=== PATIENT | female | born 1995 | race Caucasian/White ===

== ENCOUNTER 2018-05-21 13:44 | Observation (INO) | payer SELFPAY ==
--- NOTE | 2018-05-21 13:51 | ER Report ---
History and Physical Time Seen By MD: 13:51 HPI/ROS CHIEF COMPLAINT: Abdominal pain, nausea HISTORY OF PRESENT ILLNESS: Patient is a 22-year-old female who is visiting from [place]. She states that around 5 AM she woke with epigastric abdominal pain along with some bilateral flank pain one episode of vomiting last evening but currently just nauseous. She denies any diarrhea. The pain at times gets quite intense. She denies any prior history of any abdominal surgery. She has no known ill contacts. She denies fevers or chills. Patient denies any travel out of the country no recent antibiotic use. REVIEW OF SYSTEMS: Constitutional: No fever, no chills. Eyes: No discharge. ENT: No sore throat. Cardiovascular: No chest pain, no palpitations. Respiratory: No cough, no shortness of breath. Gastrointestinal: Epigastric abdominal pain with nausea. Genitourinary: No hematuria. Musculoskeletal: No back pain. Skin: No rashes. Neurological: No headache. Allergies: Coded Allergies: No Known Drug Allergies (Unverified , 05/21/18) Home Meds Active Scripts Ondansetron Hcl (ZOFRAN) 4 Mg Tablet, 4 MG PO Q8H for Nausea, #15 TAB 0 Refills Prov:MAGUE ISIDRO MD 05/21/18 Clarithromycin (CLARITHROMYCIN) 500 Mg Tablet, 500 MG PO BID for 14 Days, #28 TAB 0 Refills Prov:MAGUE ISIDRO MD 05/21/18 Amoxicillin 500 Mg Tab (AMOXICILLIN 500 MG TAB) 500 Mg Tablet, 2 TAB PO Q12H for 14 Days, #56 TAB 0 Refills Prov:MAGUE ISIDRO MD 05/21/18 Pantoprazole Sodium (PANTOPRAZOLE SODIUM) 40 Mg Tablet.dr, 40 MG PO BID for 14 Days, #28 TAB.SR 0 Refills Prov:MAGUE ISIDRO MD 05/21/18 Past Medical/Surgical History Noncontributory Constitutional Vital Sign - Last 24 Hours 05/21/18 13:49 Temp 98.0 Pulse 76 Resp 20 B/P (MAP) 112/69 Pulse Ox 96 Physical Exam General/Constitutional: Patient is awake, alert, nontoxic and in no acute r espiratory distress. Head: Normocephalic and atraumatic. Eyes: Conjunctival clear, Pupils are equal and reactive to light. Extraocular muscles are intact and symmetrical. Sclera are clear and anicteric. Ears:External canals are clear. Tympanic membranes are clear with normal landmarks and light reflex. Nares: No rhinorrhea or bleeding. Turbinates are pink and moist. Oropharyngeal: Mucous membranes are moist. There is no pharyngeal erythema or exudate. There are no palatal petechiae. Uvula is midline and symmetrical. Neck: Supple, no adenopathy. Cardiovascular: Heart is regular rate and rhythm without audible murmurs, rubs or gallops. Pulmonary: Lungs are clear to auscultation bilaterally. There are no wheezes, rales, or rhonchi. Chest rise is symmetrical Abdomen: Soft, periumbilical and epigastric abdominal pain to palpation no guarding or rebound tenderness noted. Extremities: No gross deformities, No peripheral cyanosis. Able to move all 4 extremities. Neuro: Alert and oriented X3, Skin: No rashes, skin is warm dry and well perfused. Medical Decision Making Data Points Result Diagram: 05/21/18 1407 05/21/18 1407 Laboratory Hematology Test 05/21/18 13:48 05/21/18 14:07 Urine Color Yellow Urine Clarity Clear Urine pH 5.0 pH (4.8-9.5) Urine Specific [place] 1.024 Urine Protein Negative mg/dL (NEGATIVE) Urine Glucose (UA) Negative mg/dL (NEGATIVE) Urine Ketones Negative mg/dL (NEGATIVE) Urine Blood Negative (NEGATIVE) Urine Nitrite Negative (NEGATIVE) Urine Bilirubin Negative (NEGATIVE) Urine Urobilinogen Negative mg/dL (0.2-1.9) Urine Leukocyte Esterase Trace (NEGATIVE) Urine RBC <1 /HPF (0-2/HPF) Urine WBC 1 /HPF (0-5/HPF) Urine Squamous Epithelial Cells Many /LPF (</=FEW) Urine Bacteria Negative /HPF (NONE-FEW) Urine Mucus Few /HPF (NONE-FEW) Red Blood Count 5.28 M/uL (4.17-5.56) Mean Corpuscular Volume 83.1 fL (80.0-96.0) Mean Corpuscular Hemoglobin 28.4 pg (26.0-33.0) Mean Corpuscular Hemoglobin Concent 34.1 g/dL (32.0-36.0) Red Cell Distribution Width 13.1 % (11.5-14.5) Mean Platelet Volume 10.0 fL (7.2-11.1) Neutrophils (%) (Auto) 78.7 % (39.4-72.5) Lymphocytes (%) (Auto) 13.8 % (17.6-49.6) Monocytes (%) (Auto) 5.4 % (4.1-12.4) Eosinophils (%) (Auto) 1.2 % (0.4-6.7) Basophils (%) (Auto) 0.9 % (0.3-1.4) Nucleated RBC Relative Count (auto) 0.1 /100WBC Neutrophils # (Auto) 9.4 K/uL (2.0-7.4) Lymphocytes # (Auto) 1.7 K/uL (1.3-3.6) Monocytes # (Auto) 0.6 K/uL (0.3-1.0) Eosinophils # (Auto) 0.1 K/uL (0.0-0.5) Basophils # (Auto) 0.1 K/uL (0.0-0.1) Nucleated RBC Absolute Count (auto) 0.01 K/uL Urine HCG, Qualitative Negative (NEGATIVE) Sodium Level 137 mmol/L (137-145) Potassium Level 3.8 mmol/L (3.5-5.0) Chloride Level 106 mmol/L (98-107) Carbon Dioxide Level 26 mmol/L (22-31) Blood Urea Nitrogen 16 mg/dl (7-18) Creatinine 0.70 mg/dl (0.52-1.04) Glomerular Filtration Rate Calc > 60.0 Random Glucose 93 mg/dl (75-110) Calcium Level 9.2 mg/dl (8.4-10.2) Total Bilirubin 0.4 mg/dl (0.2-1.3) Aspartate Amino Transf (AST/SGOT) 25 U/L (0-35) Alanine Aminotransferase (ALT/SGPT) 30 U/L (0-56) Alkaline Phosphatase 75 U/L (0-126) Total Protein 7.7 g/dl (6.3-8.2) Albumin 4.3 g/dl (3.5-5.0) Lipase 133 U/L (23-300) Helicobacter pylori IgG Antibody Positive (NEGATIVE) Chemistry Test 05/21/18 13:48 05/21/18 14:07 Urine Color Yellow Urine Clarity Clear Urine pH 5.0 pH (4.8-9.5) Urine Specific [place] 1.024 Urine Protein Negative mg/dL (NEGATIVE) Urine Glucose (UA) Negative mg/dL (NEGATIVE) Urine Ketones Negative mg/dL (NEGATIVE) Urine Blood Negative (NEGATIVE) Urine Nitrite Negative (NEGATIVE) Urine Bilirubin Negative (NEGATIVE) Urine Urobilinogen Negative mg/dL (0.2-1.9) Urine Leukocyte Esterase Trace (NEGATIVE) Urine RBC <1 /HPF (0-2/HPF) Urine WBC 1 /HPF (0-5/HPF) Urine Squamous Epithelial Cells Many /LPF (</=FEW) Urine Bacteria Negative /HPF (NONE-FEW) Urine Mucus Few /HPF (NONE-FEW) White Blood Count 12.0 k/uL (4.5-11.0) Red Blood Count 5.28 M/uL (4.17-5.56) Hemoglobin 15.0 g/dL (12.0-16.0) Hematocrit 43.9 % (34.0-47.0) Mean Corpuscular Volume 83.1 fL (80.0-96.0) Mean Corpuscular Hemoglobin 28.4 pg (26.0-33.0) Mean Corpuscular Hemoglobin Concent 34.1 g/dL (32.0-36.0) Red Cell Distribution Width 13.1 % (11.5-14.5) Platelet Count 220 K/uL (150-450) Mean Platelet Volume 10.0 fL (7.2-11.1) Neutrophils (%) (Auto) 78.7 % (39.4-72.5) Lymphocytes (%) (Auto) 13.8 % (17.6-49.6) Monocytes (%) (Auto) 5.4 % (4.1-12.4) Eosinophils (%) (Auto) 1.2 % (0.4-6.7) Basophils (%) (Auto) 0.9 % (0.3-1.4) Nucleated RBC Relative Count (auto) 0.1 /100WBC Neutrophils # (Auto) 9.4 K/uL (2.0-7.4) Lymphocytes # (Auto) 1.7 K/uL (1.3-3.6) Monocytes # (Auto) 0.6 K/uL (0.3-1.0) Eosinophils # (Auto) 0.1 K/uL (0.0-0.5) Basophils # (Auto) 0.1 K/uL (0.0-0.1) Nucleated RBC Absolute Count (auto) 0.01 K/uL Urine HCG, Qualitative Negative (NEGATIVE) Glomerular Filtration Rate Calc > 60.0 Calcium Level 9.2 mg/dl (8.4-10.2) Total Bilirubin 0.4 mg/dl (0.2-1.3) Aspartate Amino Transf (AST/SGOT) 25 U/L (0-35) Alanine Aminotransferase (ALT/SGPT) 30 U/L (0-56) Alkaline Phosphatase 75 U/L (0-126) Total Protein 7.7 g/dl (6.3-8.2) Albumin 4.3 g/dl (3.5-5.0) Lipase 133 U/L (23-300) Helicobacter pylori IgG Antibody Positive (NEGATIVE) Urinalysis Test 05/21/18 13:48 05/21/18 14:07 Urine Color Yellow Urine Clarity Clear Urine pH 5.0 pH (4.8-9.5) Urine Specific [place] 1.024 Urine Protein Negative mg/dL (NEGATIVE) Urine Glucose (UA) Negative mg/dL (NEGATIVE) Urine Ketones Negative mg/dL (NEGATIVE) Urine Blood Negative (NEGATIVE) Urine Nitrite Negative (NEGATIVE) Urine Bilirubin Negative (NEGATIVE) Urine Urobilinogen Negative mg/dL (0.2-1.9) Urine Leukocyte Esterase Trace (NEGATIVE) Urine RBC <1 /HPF (0-2/HPF) Urine WBC 1 /HPF (0-5/HPF) Urine Squamous Epithelial Cells Many /LPF (</=FEW) Urine Bacteria Negative /HPF (NONE-FEW) Urine Mucus Few /HPF (NONE-FEW) Urine HCG, Qualitative Negative (NEGATIVE) EKG/Imaging Imaging [facility] PATIENT NAME: Sissy Barba : 1995 MR: [id number] V: [id number] EXAM DATE: ORDERING PHYSICIAN: MAGUE ISIDRO TECHNOLOGIST: Location: [facility] Patient: Sissy Barba : 1995 Visit/Account:[id number] Date of Sevice: 05/21/2018 EXAMINATION: CT abdomen and pelvis with IV contrast HISTORY: Abdominal pain, constipation TECHNIQUE: Axial CT images of the abdomen and pelvis were obtained with IV contrast, with coronal and sagittal 2D reconstructed images. One of the following dose optimization techniques was utilized in the performance of this exam: Automated exposure control; adjustment of the mA and/or kV according to the patient's size; or use of an iterative reconstruction technique. Specific details can be referenced in the facility's radiology CT exam operational policy. Contrast: 75 mL of IV Isovue-370. COMPARISON: None. FINDINGS: Liver: Negative. Gallbladder and bile ducts: Cholelithiasis. There is at least one tiny calcified stone layering in the dependent gallbladder. No CT evidence of cholecystitis. No bile duct dilatation. Spleen: Negative. Pancreas: Negative. Adrenal glands: Negative. Kidneys: Single nonobstructing 3 mm stone in the lower pole of the right kidney. No left-sided urinary calculi. No hydronephrosis. The kidneys enhance normally. Bowel and peritoneum: The appendix is visualized in the right lower quadrant. The appendix is mildly enlarged, measuring 9 mm, with mild wall thickening and enhancement and slight periappendiceal stranding. CT appearance is suspicious for appendicitis. Remainder of the small bowel and colon are normal in caliber and unremarkable by CT. Minimal colonic stool density. Trace amount of free fluid in the pelvis. No free intraperitoneal air. Pelvic structures: Grossly unremarkable by CT. No large adnexal cyst in the pelvis. Lymph node assessment: Negative. Vessels: Negative. Musculoskeletal: Negative. Body wall: Negative. Lung bases: Negative. IMPRESSION: 1. The appendix is mildly enlarged, with CT findings suspicious for acute appendicitis. No CT evidence of perforation or abscess formation. 2. Small amount of free fluid in the pelvis. 3. No other acute intra-abdominal findings. 4. Cholelithiasis without CT evidence of cholecystitis. 5. Single small nonobstructing right renal calculus. Findings were discussed with MAGUE ISIDRO at 05/21/2018 3:16 PM. Report Dictated By: Josue Arana MD at 05/21/2018 3:09 PM Report E-Signed By: Josue Arana MD at 05/21/2018 3:17 PM [id number] ED Course/Re-evaluation Clinical Indication for ER IV: Hydration, IV Access ED Course 05/21/2018 2:35:41 pm plan at this time will be to perform abdominal workup including CBC CMP test is bilaterally. Check CT of the abdomen and pelvis with IV contrast. Decision to Disposition Date: May 21, 2018 Decision to Disposition Time: 16:00 Depart Departure Latest Vital Signs Vital Signs Date Time Temp Pulse Resp B/P (MAP) Pulse Ox O2 Delivery O2 Flow Rate FiO2 05/21/18 13:49 98.0 76 20 112/69 96 Impression: Primary Impression: Acute appendicitis Additional Impression: Helicobacter pylori gastritis Condition: Improved Disposition: Admitted from ER (to med surg, dr workman) New Scripts Ondansetron Hcl (ZOFRAN) 4 Mg Tablet 4 MG PO Q8H for Nausea, #15 TAB 0 Refills Prov: MAGUE ISIDRO MD 05/21/18 Clarithromycin (CLARITHROMYCIN) 500 Mg Tablet 500 MG PO BID for 14 Days, #28 TAB 0 Refills Prov: MAGUE ISIDRO MD 05/21/18 Amoxicillin 500 Mg Tab (AMOXICILLIN 500 MG TAB) 500 Mg Tablet 2 TAB PO Q12H for 14 Days, #56 TAB 0 Refills Prov: MAGUE ISIDRO MD 05/21/18 Pantoprazole Sodium (PANTOPRAZOLE SODIUM) 40 Mg Tablet.dr 40 MG PO BID for 14 Days, #28 TAB.SR 0 Refills Prov: MAGUE ISIDRO MD 05/21/18 Patient Instructions: Appendicitis (GEN), Diet for Stomach Ulcers and Gastritis (ED), Gastritis (ED), Helicobacter Pylori (GEN) Problem Qualifiers Primary Impression: Acute appendicitis Acute appendicitis type: unspecified acute appendicitis type Qualified Codes: K35.80 - Unspecified acute appendicitis MAGUE ISIDRO MD May 21, 2018 13:51
[2018-05-21] MEDS ORDERED: NS(*) 0.9% 1000 ML BAG 1,000 ML IV ONE (14:12)
[2018-05-21] MEDS ORDERED: ONDANSETRON 4 MG/2 ML VIAL IVP ONE (14:15)
[2018-05-21] MEDS ORDERED: KETOROLAC 30 MG/ML VIAL IVP ONE (14:15)
[2018-05-21 14:20] LABS: PLATELET COUNT, AUTOMATED 220 K/uL (150-450)
[2018-05-21] MEDS ORDERED: IOPAMIDOL 76% 100 ML INFUS BTL 100 ML ONE (14:43)
[2018-05-21] MEDS ORDERED: AMOX500T10 PO (14:52)
[2018-05-21] MEDS ORDERED: ONDA4TAB97 PO (14:52)
[2018-05-21] MEDS ORDERED: PANT40TA65 PO (14:52)
[2018-05-21] MEDS ORDERED: CLAR-1 PO (14:52)
--- NOTE | 2018-05-21 15:26 | RADIOLOGY IMAGING REPORT ---
FACILITY: [facility] PATIENT NAME: Sisys Barba : 1995 MR: [id number] V: [id number] EXAM DATE: ORDERING PHYSICIAN: MAGUE ISIDRO TECHNOLOGIST: Location: [facility] Patient: Sissy Barba : 1995 Visit/Account:[id number] Date of Sevice: 05/21/2018 EXAMINATION: CT abdomen and pelvis with IV contrast HISTORY: Abdominal pain, constipation TECHNIQUE: Axial CT images of the abdomen and pelvis were obtained with IV contrast, with coronal a nd sagittal 2D reconstructed images. One of the following dose optimization techniques was utilized in the performance of this exam: Autom ated exposure control; adjustment of the mA and/or kV according to the patient's size; or use of an i terative reconstruction technique. Specific details can be referenced in the facility's radiology C T exam operational policy. Contrast: 75 mL of IV Isovue-370. COMPARISON: None. FINDINGS: Liver: Negative. Gallbladder and bile ducts: Cholelithiasis. There is at least one tiny calcified stone layering in th e dependent gallbladder. No CT evidence of cholecystitis. No bile duct dilatation. Spleen: Negative. Pancreas: Negative. Adrenal glands: Negative. Kidneys: Single nonobstructing 3 mm stone in the lower pole of the right kidney. No left-sided urina ry calculi. No hydronephrosis. The kidneys enhance normally. Bowel and peritoneum: The appendix is visualized in the right lower quadrant. The appendix is mildly enlarged, measuring 9 mm, with mild wall thickening and enhancement and slight periappendiceal stran ding. CT appearance is suspicious for appendicitis. Remainder of the small bowel and colon are normal in caliber and unremarkable by CT. Minimal colonic stool density. Trace amount of free fluid in the pelvis. No free intraperitoneal air. Pelvic structures: Grossly unremarkable by CT. No large adnexal cyst in the pelvis. Lymph node assessment: Negative. Vessels: Negative. Musculoskeletal: Negative. Body wall: Negative. Lung bases: Negative. IMPRESSION: 1. The appendix is mildly enlarged, with CT findings suspicious for acute appendicitis. No CT evidenc e of perforation or abscess formation. 2. Small amount of free fluid in the pelvis. 3. No other acute intra-abdominal findings. 4. Cholelithiasis without CT evidence of cholecystitis. 5. Single small nonobstructing right renal calculus. Findings were discussed with MAGUE ISIDRO at 05/21/2018 3:16 PM. Report Dictated By: Josue Arana MD at 05/21/2018 3:09 PM Report E-Signed By: Josue Arana MD at 05/21/2018 3:17 PM [id number]
[2018-05-21] MEDS ORDERED: AMPICILLIN/SULBACT (*) 3 GM VL 3 GM in NS(*) 0.9% 100 ML BAG 100 ML IVPB ONE (16:05)
[2018-05-21 16:47] VITALS: BP 105/81
[2018-05-21] MEDS ORDERED: D5 1/2 NS(*) 1000 ML BAG 1,000 ML IV PRN (17:05)
[2018-05-21] MEDS ORDERED: ONDANSETRON 4 MG/2 ML VIAL IVP PRN ×2 (17:05→22:50)
[2018-05-21] MEDS ORDERED: MORPHINE 4 MG/ML SDV IVP PRN (17:05)
--- NOTE | 2018-05-21 18:29 | Gen Surgery History & Physical ---
History of Present Illness Chief Complaint Abdominal pain History of Present Illness 22yo female from [place], travelling through [place] with her male-friend, presents with abdominal pain that started overnight last night. She reports a longer h/o postprandial epigastric abdominal pain with N/V but that is not new. Her abdominal pain is in right mid and lower abdomen. No h/o abdominal (or any) surgery. History Home Meds Discontinued Scripts Ondansetron Hcl (ZOFRAN) 4 Mg Tablet, 4 MG PO Q8H for Nausea, #15 TAB 0 Refills Prov:MAGUE ISIDRO MD 05/21/18 Clarithromycin (CLARITHROMYCIN) 500 Mg Tablet, 500 MG PO BID for 14 Days, #28 TAB 0 Refills Prov:MAGUE ISIDRO MD 05/21/18 Amoxicillin 500 Mg Tab (AMOXICILLIN 500 MG TAB) 500 Mg Tablet, 2 TAB PO Q12H for 14 Days, #56 TAB 0 Refills Prov:MAGUE ISIDRO MD 05/21/18 Pantoprazole Sodium (PANTOPRAZOLE SODIUM) 40 Mg Tablet.dr, 40 MG PO BID for 14 Days, #28 TAB.SR 0 Refills Prov:MAGUE ISIDRO MD 05/21/18 Allergies: Coded Allergies: No Known Drug Allergies (Unverified , 05/21/18) Review of Systems All Systems Reviewed/Normal: Yes, Except as Noted Gastrointestinal: Abdominal Pain Exam General Appearance: Alert, Awake, No Acute Distress, Afebrile Neuro: No Gross deficits Eyes: PERRLA GI: Other (TTP in right abdomen, both upper and lower, but especially RLQ. Also epigastric TTP. No palpable mass or bulge.) Extremities: Warm, Perfused Psych: Alert & Oriented X3, Appropriate Mood & Affect Medical Decision Making Data Points Result Diagram: 05/21/18 1407 05/21/18 1407 Assessment and Plan Problems: (1) Acute appendicitis Status: Acute Assessment & Plan: 05/21/18: I have explained the diagnoses with the patient in great detail and as well as it's treatment. I have recommended lap appy. After explaining the procedure in detail along with alternatives, risks, and expected recovery, pt would like to proceed with surgery. Will add this on for tonight. (2) Helicobacter pylori gastritis Status: Acute Assessment & Plan: 05/21/18: I have explained this finding with the patient and since she is having epigastric pain will start 14 day triple therapy (amoxi cillin, clarithromycin, pantoprazole) after surgery. She is agreeable with this. (3) Cholelithiasis Status: Chronic Assessment & Plan: 05/21/18: I have discussed this finding with the patient and I have told her that I believe this is an incidental finding but if she has episodes of RUQ abdominal pain or continuous RUQ abdominal pain in the future then she will need to have her gallbladder removed but I don't recommend that we remove it today and deal with the appendicitis right now as well as treat the H.pylori and see how she feels after treatment. There's no sign of infection or inflammation but I will check her gallbladder during surgery. Condition Stable. Time Spent: < 30 min Venous Thromboembolism VTE Risk Physician Assess for VTE Risk: Yes Patient's VTE Risk: Low VTE Diagnostic Test 2 Days Prior to Admit: No Antithrombotics Is Pt On Any Antithrombotics?: No Problem Qualifiers (1) Acute appendicitis: Acute appendicitis type: unspecified acute appendicitis type Qualified Codes: K35.80 - Unspecified acute appendicitis (2) Cholelithiasis: Cholelithiasis location: gallbladder Cholecystitis presence: without cholecystitis Biliary obstruction: without biliary obstruction Qualified Codes: K80.20 - Calculus of gallbladder without cholecystitis without obst ruction DORI RIDLEY MD May 21, 2018 18:29
[2018-05-21] MEDS ORDERED: LIDOCAINE MPF 1% 5 ML VIAL ONE (19:11)
[2018-05-21] MEDS ORDERED: PROPOFOL EMUL(*) 10MG/ML 20 ML 20 ML ONE (19:11)
[2018-05-21] MEDS ORDERED: fentaNYL CITR 100 MCG/2 ML AMP ONE ×2 (19:11→22:50)
[2018-05-21] MEDS ORDERED: ONDANSETRON 4 MG/2 ML VIAL ONE (19:11)
[2018-05-21] MEDS ORDERED: ROCURONIUM BROM 10 MG/ML 10 ML ONE (19:11)
[2018-05-21] MEDS ORDERED: NORMOSOL R SOLN(*) 1000 ML BAG 1,000 ML IV ONE (19:24)
[2018-05-21] MEDS ORDERED: FAMOTIDINE(*) 20MG/50ML PREMIX 50 ML IVPB ONE (19:24)
[2018-05-21 19:35] VITALS: BP 106/70
[2018-05-21] MEDS ORDERED: SUGAMMADEX SOD 500 MG/5 ML SDV ONE (20:12)
[2018-05-21] MEDS ORDERED: DEXAMETHASONE SOD PHOS 10MG/ML ONE (21:35)
[2018-05-21] MEDS ORDERED: ROPIVACAINE 0.5% 20 ML VIAL ONE (21:49)
[2018-05-21] MEDS: NS IVPB SCH (22:00)
[2018-05-21] MEDS: AMPICILLIN IVPB SCH (22:00)
[2018-05-21] MEDS: SULBACTAM IVPB SCH (22:00)
[2018-05-21] MEDS ORDERED: PROMETHAZINE 25 MG/ML 1 ML AMP ONE (22:44)
[2018-05-21] MEDS ORDERED: PANTOPRAZOLE SOD 40 MG IV VIAL IVP ONE (22:50)
[2018-05-21] MEDS ORDERED: ACETAMINOPHEN 325 MG TAB PO PRN (22:50)
[2018-05-21] MEDS ORDERED: FLUSH 10 ML SYR IVP PRN (22:50)
--- NOTE | 2018-05-21 23:02 | Post Operative Progress Note ---
Post Operative Progress Note Date: May 21, 2018 Time: 22:56 Surgeon: Nilo Dictation number: [id number] Anesthesia: GETA by Dr. Jones Pre-Op Diagnosis: Acute appendicitis Post-Op Diagnosis: PATRIA Findings: Early appendicitis Procedure(s): Lap appy Specimen Removed:(May be N/A): appendix Complications: None Fluids: See anesthesia record Estimated Blood Loss: Minimal Date OP Note Dictated: May 21, 2018 Time OP Note Dictated: 22:56 DORI RIDLEY MD May 21, 2018 23:02
[2018-05-21 23:34] VITALS: BP 104/70
[2018-05-21 23:45] VITALS: BP 86/53
[2018-05-22] VITALS (20 sets, daily range): BP systolic 89–113; BP diastolic 51–90
[2018-05-22] MEDS: MORPHINE 2 MG/ML SYR IVP PRN ×2 (00:10→03:41)
--- NOTE | 2018-05-22 01:25 | OPERATIVE REPORT 1 ---
EVENT DATE: May 21, 2018 SURGEON: Chandrakant Corcoran MD ANESTHESIOLOGIST: Denny Jones DO ANESTHESIA: General endotracheal anesthesia. PREOPERATIVE DIAGNOSIS Acute appendicitis. POSTOPERATIVE DIAGNOSIS Acute appendicitis. PROCEDURE PERFORMED Laparoscopic appendectomy. COMPLICATIONS None. CONDITION Stable. BLOOD LOSS Minimal. SPECIMENS Appendix. INDICATIONS This is a 22-year-old female who presented to the emergency room with abdominal pain and a mildly elevated white blood cell count, and a CT scan was suspicious for early appendicitis. DESCRIPTION OF PROCEDURE Patient was brought to the operating room and placed supine on the operating table. General endotracheal anesthesia was administered. The abdomen was prepped and draped in a sterile fashion. Time-out was completed, and I injected the infraumbilical skin with 0.5% bupivacaine plain and made a curvilinear [id number] incision through the infraumbilical skin. I dissected through the dermis and subcutaneous fat, and I identified the midline fascia. I made a vertical incision through the midline fascia and then bluntly entered the peritoneal cavity with my finger. I placed two interrupted 0 Vicryl sutures transversely through the vertical fascial defect and inserted a 12 mm Satnam- type port through this wound and secured it into place with sutures. I insufflated the abdomen to a pressure of 15 mmHg and inserted a 5 mm [id number] scope through this port. Next, under direct visualization I placed a 5 mm port in the suprapubic midline and a 5 mm port in the left lower quadrant. Patient was placed in Trendelenburg and planed toward her left to move the viscera from the right lower quadrant. I then inspected her right ovary, left ovary, uterus, appendix, and gallbladder. The gallbladder appeared normal, which is important, because the CT scan showed gallstones and she was concerned about this. Uterus appeared normal. Right ovary appeared normal. Left ovary revealed a benign-appearing ovarian cyst. Appendix was mildly inflamed. The base of the appendix appeared relatively unremarkable, but the distal four-fifths did appear enlarged and injected. I then grabbed the appendix, and then, with the LigaSure, divided the mesoappendix all the way down to the base and then stapled the base of the appendix flush with the cecum with an Endo-DEAN stapler with a blue load. The appendix was placed in a surgical specimen retrieval bag and removed from the abdomen through the umbilical port site. I irrigated and dried the right lower quadrant and noticed some oozing from the staple line and also from the divided mesoappendix, and the staple line was controlled with 5 mm clips, and the mesoappendix oozing was controlled with more cautery with the LigaSure. I then suction-irrigated the right lower quadrant as well as the pelvis. There was some yellow-appearing fluid anterior and posterior to the uterus. I irrigated the pelvis out thoroughly. I then inspected the staple line and it was hemostatic, as was the divided mesoappendix. I then had the patient flatten, and I moved the omentum back into its clark's point position, which was covering the cecum as well as where the appendix had been. I then removed the 5 mm ports, desufflated the abdomen, and removed the camera followed by the umbilical port, and then placed another [id number] 0 Vicryl suture transversely through the vertical fascial defect and tied all three of these sutures down with good reapproximation of fascial edges and no remaining fascial defect. I then closed the skin at each port site with 4-0 Monocryl running subcuticular sutures. The skin was cleaned, dried, and Steri-Strips were applied, followed by sterile surgical dressings. The patient was awakened and extubated in the operating room and transported to the recovery room in stable condition, having tolerated the procedure without any apparent problems. ANAI
[2018-05-22] MEDS: AMPICILLIN IVPB SCH (03:41)
[2018-05-22] MEDS: SULBACTAM IVPB SCH (03:41)
[2018-05-22] MEDS: NS IVPB SCH (03:41)
--- NOTE | 2018-05-22 07:51 | General Surgery Progress Note ---
Subjective Progress Notes Subjective C/O postop pain. "Passed out" when going to the restroom this morning. Hasn't eaten or had anything to drink. According to nursing staff, her is telling her that she should eat or drink anything today in spite of what I told them yesterday that if surgery was straight forward and her appendix wasn't too inflamed (it was mildly inflamed) then she could start eating and drinking after surgery. Physical Exam Vital Signs Date Time Temp Pulse Resp B/P (MAP) Pulse Ox O2 Delivery O2 Flow Rate FiO2 05/22/18 06:53 98.1 55 92/57 (69) 97 Nasal Cannula 2.0 05/22/18 00:22 14 Intake and Output 05/22/18 07:00 Intake Total 1915 ml Balance 1915 ml Intake Oral 0 ml IV Total 1915 ml # Voids 4 General Appearance: Alert, Awake, No Acute Distress, Afebrile GI: Other (Soft, appropriate postop TTP, dressings with small amount of blood in central portion, very little. O/W dressings C/D/I.) Extremities: Warm, Perfused Result Diagram: 05/21/18 1407 05/21/18 1407 Assessment and Plan Problems: (1) Acute appendicitis Status: Acute Assessment & Plan: 05/21/18: I have explained the diagnoses with the patient in great detail and as well as it's treatment. I have recommended lap appy. After explaining the procedure in detail along with alternatives, risks, and expected recovery, pt would like to proceed with surgery. Will add this on for tonight. 05/22/18: POD#1 s/p lap appy. Doing well physiologically but had a syncopal episode this morning. Pt encouraged to start PO diet this morning and we'll get her up and ambulate her today. She can be discharged as soon as she's tolerating a diet, PO meds, and ambulation without problems. (2) Helicobacter pylori gastritis Status: Acute Assessment & Plan: 05/21/18: I have explained this finding with the patient and since she is having epigastric pain will start 14 day triple therapy (amoxicillin, clarithromycin, pantoprazole) after surgery. She is agreeable with this. 05/22/18: Amoxicillin, clarithromycin, and pantoprazole started this morning. I recommend a 14 day course of this and she can f/u when she gets back to her home in [place] if her UGI symptoms persist to see if H.pylori eradicated, possibly EGD, and if no other etiology found, possibly cholecystectomy. (3) Cholelithiasis Status: Chronic Assessment & Plan: 05/21/18: I have discussed this finding with the patient and I have told her that I believe this is an incidental finding but if she has epis odes of RUQ abdominal pain or continuous RUQ abdominal pain in the future then she will need to have her gallbladder removed but I don't recommend that we remove it today and deal with the appendicitis right now as well as treat the H.pylori and see how she feels after treatment. There's no sign of infection or inflammation but I will check her gallbladder during surgery. 05/22/18: GB unremarkable during laparoscopy. Recommend completing treatment for H.pylori and if UGI symptoms persist then EGD with pyloritek to test for cure and if unremarkable then may consider lap ayla. Condition Stable. Time Spent: < 30 min Exam Sepsis Risk: No Definite Risk Problem Qualifiers (1) Acute appendicitis: Acute appendicitis type: unspecified acute appendicitis type Qualified Codes: K35.80 - Unspecified acute appendicitis (2) Cholelithiasis: Cholelithiasis location: gallbladder Cholecystitis presence: without cholecystitis Biliary obstruction: without biliary obstruction Qualified Codes: K80.20 - Calculus of gallbladder without cholecystitis without obstruction DORI RIDLEY MD May 22, 2018 07:51
[2018-05-22] MEDS ORDERED: PER PO (07:54)
[2018-05-22] MEDS ORDERED: AMOX-362 PO (07:54)
[2018-05-22] MEDS ORDERED: PANT40TA65 PO (07:54)
[2018-05-22] MEDS ORDERED: CLAR-1 PO (07:54)
[2018-05-22] MEDS ORDERED: DOCU-202 PO (07:54)
[2018-05-22] MEDS: PANTOPRAZOLE SOD 40 MG TABEC PO SCH ×2 (08:38→20:57)
[2018-05-22] MEDS: DOCUSATE SODIUM 100 MG CAP PO SCH ×2 (08:38→20:57)
[2018-05-22] MEDS: AMOXICILLIN 500 MG CAP PO SCH ×2 (08:39→20:57)
[2018-05-22] MEDS: CLARITHROMYCIN 500 MG TAB PO SCH ×2 (08:39→20:57)
[2018-05-22] MEDS ORDERED: AMOXICILLIN 500 MG CAP PO ONE (09:00)
[2018-05-22] MEDS: KETOROLAC 30 MG/ML VIAL IVP SCH ×3 (12:29→23:27)
--- NOTE | 2018-05-22 12:32 | General Surgery Progress Note ---
Subjective Progress Notes Subjective " I just want to sleep" Physical Exam Vital Signs Date Time Temp Pulse Resp B/P (MAP) Pulse Ox O2 Delivery O2 Flow Rate FiO2 05/22/18 10:49 98.2 77 16 97/56 (70) 93 Room Air 05/22/18 06:53 2.0 Intake and Output 05/22/18 07:00 Intake Total 1915 ml Balance 1915 ml Intake Oral 0 ml IV Total 1915 ml # Voids 4 General Appearance: No Acute Distress, Afebrile Result Diagram: 05/21/18 1407 05/21/18 1407 Assessment and Plan Problems: (1) Acute appendicitis Status: Acute Assessment & Plan: 05/21/18: I have explained the diagnoses with the patient in great detail and as well as it's treatment. I have recommended lap appy. After explaining the procedure in detail along with alternatives, risks, and expected recovery, pt would like to proceed with surgery. Will add this on for tonight. 05/22/18: POD#1 s/p lap appy. Doing well physiologically but had a syncopal episode this morning. Pt encouraged to start PO diet this morning and we'll get her up and ambulate her today. She can be discharged as soon as she's tolerating a diet, PO meds, and ambulation without problems. 05/22/18: Not motivated to get up and walk, tolerating sips of soup. I will stop the morphine and use Tylenol and Toradol for pain. Will ask nurses to get her up and ambulating. DC home in am. (2) Helicobacter pylori gastritis Status: Acute Assessment & Plan: 05/21/18: I have explained this finding with the patient and since she is having epigastric pain will start 14 day triple therapy (amoxicillin, clarithromycin, pantoprazole) after surgery. She is agreeable with this. 05/22/18: Amoxicillin, clarithromycin, and pantoprazole started this morning. I recommend a 14 day course of this and she can f/u when she gets back to her home in [place] if her UGI symptoms persist to see if H.pylori eradicated, possibly EGD, and if no other etiology found, possibly cholecystectomy. (3) Cholelithiasis Status: Chronic Assessment & Plan: 05/21/18: I have discussed this finding with the patient and I have told her that I believe this is an incidental finding but if she has episodes of RUQ abdominal pain or continuous RUQ abdominal pain in the future then she will need to have her gallbladder removed but I don't recommend that we remove it today and deal with the appendicitis right now as well as treat the H.pylori and see how she feels after treatment. There's no sign of infection or inflammation but I will check her gallbladder during surgery. 05/22/18: GB unremarkable during laparoscopy. Recommend completing treatment for H.pylori and if UGI symptoms persist then EGD with pyloritek to test for cure and if unremarkable then may consider lap ayla. Exam Sepsis Risk: No Definite Risk Problem Qualifiers (1) Acute appendicitis: Acute appendicitis type: unspecified acute appendicitis type Qualified Codes: K35.80 - Unspecified acute appendicitis (2) Cholelithiasis: Cholelithiasis location: gallbladder Cholecystitis presence: without cholecystitis Biliary obstruction: without biliary obstruction Qualified Codes: K80.20 - Calculus of gallbladder without cholecystitis without obstruction KIMBERLY BUENO MD May 22, 2018 12:32
[2018-05-22] MEDS: D5 1/2 NS(*) 1000 ML BAG 1,000 ML IV PRN (14:10)
[2018-05-22] MEDS ORDERED: ACETAMINOPHEN 325 MG TAB PO PRN (18:50)
[2018-05-23 02:13] VITALS: BP 94/58
[2018-05-23] MEDS: D5 1/2 NS(*) 1000 ML BAG 1,000 ML IV PRN (03:44)
[2018-05-23] MEDS: KETOROLAC 30 MG/ML VIAL IVP SCH ×2 (05:41→12:13)
[2018-05-23 07:31] VITALS: BP 82/49
--- NOTE | 2018-05-23 07:44 | Hospitalist Depart ---
Discharge Summary Reason for Hosp/Final Diag: (1) Acute appendicitis Status: Acute Hospital Course & Plan: 05/21/18: I have explained the diagnoses with the patient in great detail and as well as it's treatment. I have recommended lap appy. After explaining the procedure in detail along with alternatives, risks, and expected recovery, pt would like to proceed with surgery. Will add this on for tonight. 05/22/18: POD#1 s/p lap appy. Doing well physiologically but had a syncopal episode this morning. Pt encouraged to start PO diet this morning and we'll get her up and ambulate her today. She can be discharged as soon as she's tolerating a diet, PO meds, and ambulation without problems. 05/22/18: Not motivated to get up and walk, tolerating sips of soup. I will stop the morphine and use Tylenol and Toradol for pain. Will ask nurses to get her up and ambulating. DC home in am. 05/23/18: Still without much of an appetite, is tolerating PO, Doing better off narcotics. Incisions look good, Abdomen benign. DC home today. She reports they will stay at a hotel for a few days before driving back to [place]. (2) Helicobacter pylori gastritis Status: Acute Hospital Course & Plan: 05/21/18: I have explained this finding with the patient and since she is having epigastric pain will start 14 day triple therapy (amoxicillin, clarithromycin, pantoprazole) after surgery. She is agreeable with this. 05/22/18: Amoxicillin, clarithromycin, and pantoprazole started this morning. I recommend a 14 day course of this and she can f/u when she gets back to her home in [place] if her UGI symptoms persist to see if H.pylori eradicated, possibly EGD, and if no other etiology found, possibly cholecystectomy. (3) Cholelithiasis Status: Chronic Hospital Course & Plan: 05/21/18: I have discussed this finding with the patient and I have told her that I believe this is an incidental finding but if she has episodes of RUQ abdominal pain or continuous RUQ abdominal pain in the future then she will need to have her gallbladder removed but I don't recommend that we remove it today and deal with the appendicitis right now as well as treat the H.pylori and see how she feels after treatment. There's no sign of infection or inflammation but I will check her gallbladder during surgery. 05/22/18: GB unremarkable during laparoscopy. Recommend completing treatment for H.pylori and if UGI symptoms persist then EGD with pyloritek to test for cure and if unremarkable then may consider lap ayla. Departure Weight (Pounds): 185 Result Diagram: 05/21/18 1407 05/21/18 1407 Condition: Improved Discharge: Home, Self Care Time Spent: < 30 min Discharge Instructions Home Meds Active Scripts Pantoprazole Sodium (PANTOPRAZOLE SODIUM) 40 Mg Tablet.dr, 1 TAB PO Q12H, #30 TAB 0 Refills Prov:DORI RIDLEY MD 05/22/18 Oxycodone/Acetaminophen (OXYCODONE/ACETAMINOPHEN 5MG/325 MG) 5 Mg/325 Mg Tab, 1 TAB PO Q4H PRN for MODERATE PAIN, #20 TAB 0 Refills Prov:DORI RIDLEY MD 05/22/18 Docusate Sodium (DOCUSATE SODIUM) 100 Mg Capsule, 1 CAP PO BID, #30 CAPSULE 0 Refills Prov:DORI RIDLEY MD 05/22/18 Clarithromycin (CLARITHROMYCIN) 500 Mg Tablet, 1 TAB PO BID, #28 TAB 0 Refills Prov:DORI RIDLEY MD 05/22/18 Amoxicillin (AMOXICILLIN) 500 Mg Capsule, 2 TAB PO BID, #56 CAPSULE 0 Refills Prov:DORI RIDLEY MD 05/22/18 Discontinued Scripts Ondansetron Hcl (ZOFRAN) 4 Mg Tablet, 4 MG PO Q8H for Nausea, #15 TAB 0 Refills Prov:MAGUE ISIDRO MD 05/21/18 Clarithromycin (CLARITHROMYCIN) 500 Mg Tablet, 500 MG PO BID for 14 Days, #28 TAB 0 Refills Prov:MAGUE ISIDRO MD 05/21/18 Amoxicillin 500 Mg Tab (AMOXICILLIN 500 MG TAB) 500 Mg Tablet, 2 TAB PO Q12H for 14 Days, #56 TAB 0 Refills Prov:MAGUE ISIDRO MD 05/21/18 Pantoprazole Sodium (PANTOPRAZOLE SODIUM) 40 Mg Tablet.dr, 40 MG PO BID for 14 Days, #28 TAB.SR 0 Refills Prov:MAGUE ISIDRO MD 05/21/18 Diet: Regular Activity: No Heavy Lifting Special Instructions: Patient will follow up with her doctor in [place] upon return home. Venous Thromboembolism Antithrombotics Is Pt On Any Antithrombotics?: No Problem Qualifiers (1) Acute appendicitis: Acute appendicitis type: unspecified acute appendicitis type Qualified Codes: K35.80 - Unspecified acute appendicitis (2) Cholelithiasis: Cholelithiasis location: gallbladder Cholecystitis presence: without ch olecystitis Biliary obstruction: without biliary obstruction Qualified Codes: K80.20 - Calculus of gallbladder without cholecystitis without obstruction KIMBERLY BUENO MD May 23, 2018 07:44
[2018-05-23] MEDS: CLARITHROMYCIN 500 MG TAB PO SCH (09:59)
[2018-05-23] MEDS: AMOXICILLIN 500 MG CAP PO SCH (09:59)
[2018-05-23] MEDS: DOCUSATE SODIUM 100 MG CAP PO SCH (10:00)
[2018-05-23] MEDS: PANTOPRAZOLE SOD 40 MG TABEC PO SCH (10:00)
[2018-05-23 11:31] VITALS: BP 89/59
== END 2018-05-23 07:31 | disposition home or self-care (01) ==
LOC: ER 13:56 → INTOOBSV 16:28 → MED 16:28
PROVIDERS: ADMIT Surgery; ATTEND Surgery
DX: K35.80 Unspecified acute appendicitis (principal); K29.70 Gastritis, unspecified, without bleeding; B96.81 Helicobacter pylori [H. pylori] as the cause of diseases classified elsewhere; K80.20 Calculus of gallbladder without cholecystitis without obstruction
CPT/HCPCS: 44970; 74177; 81001; 81025; 83690; 85025; 86677; 88304; 96361; 96374; 96375; 99285; G0378; J0295; J1100; J1885; J2001; J2270; J2405; J2550; J2704; J2795; J3010; J3490; J7030; J7050; Q9967; 82040; 82247; 82310; 82374; 82435; 82565; 82947; 84075; 84132; 84155; 84295; 84450; 84460; 84520

== ENCOUNTER 2018-05-26 15:03 | Observation (INO) | payer SELFPAY ==
[~2018-05-26 15:03] MED LIST: AMOX-362 PO; AMOX500T10 PO; CLAR-1 PO; DOCU-202 PO; ONDA4TAB97 PO; PANT40TA65 PO; PER PO
--- NOTE | 2018-05-26 15:23 | ER Report ---
History and Physical Time Seen By MD: 15:23 HPI/ROS CHIEF COMPLAINT: Abdominal pain HISTORY OF PRESENT ILLNESS: 22-year-old female patient presents to emergency room with complaint of abdominal pain. Patient has a recent history of appendectomy. Patient states that she had been doing well for the past few days. She states that starting today she's been having pain in her abdomen. She states that she is having cramping. She states she's not been able to have a bowel movement. She states she's felt warm, especially when she is up moving around. She states she feels better when she lays down. She denies having any vomiting or diarrhea. Patient states that she is having persistent pain. Patient states that prior to today she's been able to have bowel movements to 3 times a day. Patient states she feels like she has pain in her umbilicus. REVIEW OF SYSTEMS: Respiratory: No cough, no dyspnea. Cardiovascular: No chest pain, no palpitations. Gastrointestinal: As noted above Musculoskeletal: No back pain. Allergies: Coded Allergies: No Known Drug Allergies (Unverified , 05/21/18) Home Meds Active Scripts Pantoprazole Sodium (PANTOPRAZOLE SODIUM) 40 Mg Tablet.dr, 1 TAB PO Q12H, #30 TA B 0 Refills Prov:DORI RIDLEY MD 05/22/18 Oxycodone/Acetaminophen (OXYCODONE/ACETAMINOPHEN 5MG/325 MG) 5 Mg/325 Mg Tab, 1 TAB PO Q4H PRN for MODERATE PAIN, #20 TAB 0 Refills Prov:DORI RIDLEY MD 05/22/18 Docusate Sodium (DOCUSATE SODIUM) 100 Mg Capsule, 1 CAP PO BID, #30 CAPSULE 0 Refills Prov:DORI RIDLEY MD 05/22/18 Clarithromycin (CLARITHROMYCIN) 500 Mg Tablet, 1 TAB PO BID, #28 TAB 0 Refills Prov:DORI RIDLEY MD 05/22/18 Amoxicillin (AMOXICILLIN) 500 Mg Capsule, 2 TAB PO BID, #56 CAPSULE 0 Refills Prov:DORI RIDLEY MD 05/22/18 Discontinued Scripts Ondansetron Hcl (ZOFRAN) 4 Mg Tablet, 4 MG PO Q8H for Nausea, #15 TAB 0 Refills Prov:MAGUE ISIDRO MD 05/21/18 Clarithromycin (CLARITHROMYCIN) 500 Mg Tablet, 500 MG PO BID for 14 Days, #28 TAB 0 Refills Prov:MAGUE ISIDRO MD 05/21/18 Amoxicillin 500 Mg Tab (AMOXICILLIN 500 MG TAB) 500 Mg Tablet, 2 TAB PO Q12H for 14 Days, #56 TAB 0 Refills Prov:MAGUE ISIDRO MD 05/21/18 Pantoprazole Sodium (PANTOPRAZOLE SODIUM) 40 Mg Tablet.dr, 40 MG PO BID for 14 Days, #28 TAB.SR 0 Refills Prov:MAGUE ISIDRO MD 05/21/18 Past Medical/Surgical History Patient has no pertinent medical history. Patient has surgical history of appendectomy. Reviewed Nurses Notes: Yes Hx Smoking: Yes (1/2 ppd) Smoking Status: Current: Every Day Smoker Exposure to Second Hand Smoke?: Yes Hx Substance Use Disorder: No Hx Alcohol Use: No Constitutional Vital Sign - Last 24 Hours 05/26/18 05/26/18 05/26/18 05/26/18 15:13 15:18 15:33 15:48 Temp 97.5 Pulse 68 ??? 80 70 Resp 18 B/P (MAP) 98/61 98/61 (73) 89/69 (76) Pulse Ox 91 93 95 O2 Delivery Room Air 05/26/18 05/26/18 05/26/18 05/26/18 16:00 16:03 16:18 16:30 Pulse 72 ??? B/P (MAP) 97/65 (76) 106/75 (85) Pulse Ox 96 05/26/18 05/26/18 05/26/18 05/26/18 16:33 16:42 16:48 17:00 Pulse 75 77 B/P (MAP) 107/71 (83) 104/67 (79) Pulse Ox 95 91 05/26/18 05/26/18 05/26/18 05/26/18 17:05 17:20 17:30 17:35 Pulse 76 ? B/P (MAP) 115/83 (94) Pulse Ox 93 05/26/18 05/26/18 05/26/18 17:50 18:00 18:05 Pulse ? B/P (MAP) ???/??? (2113) Physical Exam General Appearance: The patient is alert, has no immediate need for airway protection and no current signs of toxicity. Respiratory: Chest is non tender, lungs are clear to auscultation. Cardiac: regular rate and rhythm Gastrointestinal: Abdomen is soft and tender throughout, no masses, bowel sounds normal. Musculoskeletal: Neck: Neck is supple and non tender. Extremities have full range of motion and are non tender. Skin: No rashes or lesions. Surgical wounds appear to be healing properly, there is no obvious bleeding. Patient did have some drainage from the umbilicus. DIFFERENTIAL DIAGNOSIS: After history and physical exam differential diagnosis was considered for abscess, hematoma, surgical consultation. Medical Decision Making Data Points Result Diagram: 05/26/18 1546 05/26/18 1546 Laboratory Hematology Test 05/26/18 15:46 05/26/18 16:38 Red Blood Count 4.36 M/uL (4.17-5.56) Mean Corpuscular Volume 82.1 fL (80.0-96.0) Mean Corpuscular Hemoglobin 28.4 pg (26.0-33.0) Mean Corpuscular Hemoglobin Concent 34.6 g/dL (32.0-36.0) Red Cell Distribution Width 12.5 % (11.5-14.5) Mean Platelet Volume 9.5 fL (7.2-11.1) Neutrophils (%) (Auto) 72.6 % (39.4-72.5) Lymphocytes (%) (Auto) 17.7 % (17.6-49.6) Monocytes (%) (Auto) 8.2 % (4.1-12.4) Eosinophils (%) (Auto) 1.0 % (0.4-6.7) Basophils (%) (Auto) 0.5 % (0.3-1.4) Nucleated RBC Relative Count (auto) 0.0 /100WBC Neutrophils # (Auto) 5.9 K/uL (2.0-7.4) Lymphocytes # (Auto) 1.4 K/uL (1.3-3.6) Monocytes # (Auto) 0.7 K/uL (0.3-1.0) Eosinophils # (Auto) 0.1 K/uL (0.0-0.5) Basophils # (Auto) 0.0 K/uL (0.0-0.1) Nucleated RBC Absolute Count (auto) 0.00 K/uL Sodium Level 135 mmol/L (137-145) Potassium Level 4.0 mmol/L (3.5-5.0) Chloride Level 106 mmol/L (98-107) Carbon Dioxide Level 20 mmol/L (22-31) Blood Urea Nitrogen 15 mg/dl (7-18) Creatinine 0.70 mg/dl (0.52-1.04) Glomerular Filtration Rate Calc > 60.0 Random Glucose 89 mg/dl (75-110) Calcium Level 9.2 mg/dl (8.4-10.2) Total Bilirubin 1.1 mg/dl (0.2-1.3) Aspartate Amino Transf (AST/SGOT) 22 U/L (0-35) Alanine Aminotransferase (ALT/SGPT) 30 U/L (0-56) Alkaline Phosphatase 69 U/L (0-126) Total Protein 7.3 g/dl (6.3-8.2) Albumin 4.1 g/dl (3.5-5.0) Amylase Level 83 U/L (0-110) Lipase 121 U/L (23-300) Urine Color Straw Urine Clarity Clear Urine pH 5.0 pH (4.8-9.5) Urine Specific [place] 1.043 Urine Protein Negative mg/dL (NEGATIVE) Urine Glucose (UA) Negative mg/dL (NEGATIVE) Urine Ketones 80 mg/dL (NEGATIVE) Urine Blood Negative (NEGATIVE) Urine Nitrite Negative (NEGATIVE) Urine Bilirubin Negative (NEGATIVE) Urine Urobilinogen Negative mg/dL (0.2-1.9) Urine Leukocyte Esterase Negative (NEGATIVE) Urine RBC None /HPF (0-2/HPF) Urine WBC 2 /HPF (0-5/HPF) Urine Squamous Epithelial Cells Many /LPF (</=FEW) Urine Bacteria Negative /HPF (NONE-FEW) Urine Mucus None /HPF (NONE-FEW) Chemistry Test 05/26/18 15:46 05/26/18 16:38 White Blood Count 8.1 k/uL (4.5-11.0) Red Blood Count 4.36 M/uL (4.17-5.56) Hemoglobin 12.4 g/dL (12.0-16.0) Hematocrit 35.8 % (34.0-47.0) Mean Corpuscular Volume 82.1 fL (80.0-96.0) Mean Corpuscular Hemoglobin 28.4 pg (26.0-33.0) Mean Corpuscular Hemoglobin Concent 34.6 g/dL (32.0-36.0) Red Cell Distribution Width 12.5 % (11.5-14.5) Platelet Count 241 K/uL (150-450) Mean Platelet Volume 9.5 fL (7.2-11.1) Neutrophils (%) (Auto) 72.6 % (39.4-72.5) Lymphocytes (%) (Auto) 17.7 % (17.6-49.6) Monocytes (%) (Auto) 8.2 % (4.1-12.4) Eosinophils (%) (Auto) 1.0 % (0.4-6.7) Basophils (%) (Auto) 0.5 % (0.3-1.4) Nucleated RBC Relative Count (auto) 0.0 /100WBC Neutrophils # (Auto) 5.9 K/uL (2.0-7.4) Lymphocytes # (Auto) 1.4 K/uL (1.3-3.6) Monocytes # (Auto) 0.7 K/uL (0.3-1.0) Eosinophils # (Auto) 0.1 K/uL (0.0-0.5) Basophils # (Auto) 0.0 K/uL (0.0-0.1) Nucleated RBC Absolute Count (auto) 0.00 K/uL Glomerular Filtration Rate Calc > 60.0 Calcium Level 9.2 mg/dl (8.4-10.2) Total Bilirubin 1.1 mg/dl (0.2-1.3) Aspartate Amino Transf (AST/SGOT) 22 U/L (0-35) Alanine Aminotransferase (ALT/SGPT) 30 U/L (0-56) Alkaline Phosphatase 69 U/L (0-126) Total Protein 7.3 g/dl (6.3-8.2) Albumin 4.1 g/dl (3.5-5.0) Amylase Level 83 U/L (0-110) Lipase 121 U/L (23-300) Urine Color Straw Urine Clarity Clear Urine pH 5.0 pH (4.8-9.5) Urine Specific [place] 1.043 Urine Protein Negative mg/dL (NEGATIVE) Urine Glucose (UA) Negative mg/dL (NEGATIVE) Urine Ketones 80 mg/dL (NEGATIVE) Urine Blood Negative (NEGATIVE) Urine Nitrite Negative (NEGATIVE) Urine Bilirubin Negative (NEGATIVE) Urine Urobilinogen Negative mg/dL (0.2-1.9) Urine Leukocyte Esterase Negative (NEGATIVE) Urine RBC None /HPF (0-2/HPF) Urine WBC 2 /HPF (0-5/HPF) Urine Squamous Epithelial Cells Many /LPF (</=FEW) Urine Bacteria Negative /HPF (NONE-FEW) Urine Mucus None /HPF (NONE-FEW) Urinalysis Test 05/26/18 16:38 Urine Color Straw Urine Clarity Clear Urine pH 5.0 pH (4.8-9.5) Urine Specific [place] 1.043 Urine Protein Negative mg/dL (NEGATIVE) Urine Glucose (UA) Negative mg/dL (NEGATIVE) Urine Ketones 80 mg/dL (NEGATIVE) Urine Blood Negative (NEGATIVE) Urine Nitrite Negative (NEGATIVE) Urine Bilirubin Negative (NEGATIVE) Urine Urobilinogen Negative mg/dL (0.2-1.9) Urine Leukocyte Esterase Negative (NEGATIVE) Urine RBC None /HPF (0-2/HPF) Urine WBC 2 /HPF (0-5/HPF) Urine Squamous Epithelial Cells Many /LPF (</=FEW) Urine Bacteria Negative /HPF (NONE-FEW) Urine Mucus None /HPF (NONE-FEW) EKG/Imaging Imaging CT ABDOMEN PELVIS W/ CON HISTORY: Recent appendectomy six days ago, dizzy ramos squeezing and abdomen TECHNIQUE: Following administration of IV contrast contiguous axial images acquired through the abdomen/pelvis. Coronal and sagittal reformatting also performed.Dose Lowering Technique One of the following dose optimization techniques was utilized in the performance of this exam: Automated exposure control; adjustment of the mA and/or kV according to the patient's size; or use of an iterative reconstruction technique. Specific details can be referenced in the facility's radiology CT exam operational policy. CONTRAST: 75 mL Isovue-370 COMPARISON: May 21, 2018 FINDINGS: Visualized lung bases: Negative. Hepatobiliary: Small posterior layering gallstone although no evidence of biliary ductal dilatation Spleen: Negative. Adrenals: Negative. Pancreas: Negative. Kidneys ureters or bladder: 3 to 4 mm nonobstructing calculus lower pole calyx of the right kidney Genitalia: Negative. GI: There are surgical clips adjacent to the cecum from recent appendectomy. There is a small to moderate amount of free pelvic fluid slightly increased when compared to the prior CT. Small amount of the fluid tracks in the right paracolic gutter along the undersurface of the right lobe the liver. The CT Hounsfield units of this fluid range between 47 Hounsfield units to 58 Hounsfield units. This is not consistent with simple fluid and concerning for a hemorrhagic component. A faint linear hyperdensity within the fluid collection along the right-sided the pelvis is immediately adjacent to the distal bifurcation of the right common iliac artery and vein. Vessels/spaces/nodes: As above Bones/soft tissues: There are infiltrative changes in the periumbilical fat, likely related to the recent laparoscopic surgery Additional findings: None pertinent. IMPRESSION: There are postsurgical changes adjacent to the cecum from recent appendectomy. There is a small to moderate amount of free pelvic fluid slightly increased when compared to the prior CT. A small amount of fluid tracks into the right paracolic gutter and along the undersurface of the right lobe the liver. The CT Hounsfield units of this fluid are higher than expected for simple fluid and is concerning for a hemorrhagic component. A faint linear hyperdensity within the fluid collection right-sided the pelvis is immediately adjacent to the distal bifurcation of the right common iliac artery and vein. Clinical correlation needed Cholelithiasis although no evidence of bony ductal dilatation Nonobstructing right-sided nephrolithiasis Results were called to VANESSA EVANS at 05/26/2018 4:45 PM. Report Dictated By: Su Peterson MD at 05/26/2018 4:31 PM Report E-Signed By: Su Peterson MD at 05/26/2018 4:55 PM ED Course/Re-evaluation ED Course Patient was admitted to an exam room, history and physical were obtained. Differential diagnoses were considered. On examination patient had tenderness to the abdomen. Seems to worse over the surgical sites. Patient was complaining of significant pain around her umbilicus. I did remove the dressing, there was no obvious drainage, no erythema noted. A CBC, CMP, urinalysis, CT scan of the abdomen and pelvis were done. The CBC showed that the patient had gone from a hemoglobin of 15 to hemoglobin of 12.4, her hematocrit had gone down as well. Patient did not have an elevated white count and more that is resolved. CMP was unremarkable. CT scan of the abdomen and pelvis did show a fluid collection which could be consistent with blood in the pelvis. I discussed the case with Dr. Caceres, general surgeon. He felt that with the fluid in the abdomen and the possibility of it being blood patient should be admitted to the hospital. He requested that a repeat CBC be done in the morning, the patient be put on a clear liquid diet and made nothing by mouth after midnight, and be placed on normal saline. I discussed this with the patient and her who verbalized understanding and agreement. If the patient has continual decrease of her hemoglobin then they will do surgery looking for the source of blood. Decision to Disposition Date: May 26, 2018 Decision to Disposition Time: 19:17 Depart Departure Latest Vital Signs Vital Signs Date Time Temp Pulse Resp B/P (MAP) Pulse Ox O2 Delivery O2 Flow Rate FiO2 05/26/18 18:05 ??? 05/26/18 18:00 ???/??? (1665) 05/26/18 17:05 93 05/26/18 15:13 97.5 18 Room Air Impression: Primary Impression: Post-op bleeding Condition: Condition Unchanged Disposition: Admitted from ER Problem Qualifiers Primary Impression: Post-op bleeding Surgical complication system/body Area: digestive system Procedure type: digestive system Qualified Codes: K91.840 - Postprocedural hemorrhage of a digestive system organ or structure following a digestive system procedure VANESSA EVANS May 26, 2018 15:23
[2018-05-26] MEDS ORDERED: ONDANSETRON 4 MG/2 ML VIAL IVP ONE (15:30)
[2018-05-26] MEDS ORDERED: NS(*) 0.9% 1000 ML BAG 1,000 ML IV ONE (15:30)
[2018-05-26] MEDS ORDERED: IOPAMIDOL 76% 50 ML INFUS BTL 100 ML ONE (15:42)
[2018-05-26 15:58] LABS: PLATELET COUNT, AUTOMATED 241 K/uL (150-450)
--- NOTE | 2018-05-26 16:59 | RADIOLOGY IMAGING REPORT ---
FACILITY: [facility] PATIENT NAME: Sissy Barba : 1995 MR: [id number] V: [id number] EXAM DATE: ORDERING PHYSICIAN: VANESSA EVANS TECHNOLOGIST: Location: [facility] [place] Patient: Sissy Barba : 1995 Visit/Account:[id number] Date of Sevice: 05/26/2018 CT ABDOMEN PELVIS W/ CON HISTORY: Recent appendectomy six days ago, dizzy ramos squeezing and abdomen TECHNIQUE: Following administration of IV contrast contiguous axial images acquired through the abdom en/pelvis. Coronal and sagittal reformatting also performed.Dose Lowering Technique One of the following dose optimization techniques was utilized in the performance of this exam: Autom ated exposure control; adjustment of the mA and/or kV according to the patient's size; or use of an i terative reconstruction technique. Specific details can be referenced in the facility's radiology C T exam operational policy. CONTRAST: 75 mL Isovue-370 COMPARISON: May 21, 2018 FINDINGS: Visualized lung bases: Negative. Hepatobiliary: Small posterior layering gallstone although no evidence of biliary ductal dilatation Spleen: Negative. Adrenals: Negative. Pancreas: Negative. Kidneys ureters or bladder: 3 to 4 mm nonobstructing calculus lower pole calyx of the right kidney Genitalia: Negative. GI: There are surgical clips adjacent to the cecum from recent appendectomy. There is a small to mo derate amount of free pelvic fluid slightly increased when compared to the prior CT. Small amount of the fluid tracks in the right paracolic gutter along the undersurface of the right lobe the liver. The CT Hounsfield units of this fluid range between 47 Hounsfield units to 58 Hounsfield units. This is not consistent with simple fluid and concerning for a hemorrhagic component. A faint linear hype rdensity within the fluid collection along the right-sided the pelvis is immediately adjacent to the distal bifurcation of the right common iliac artery and vein. Vessels/spaces/nodes: As above Bones/soft tissues: There are infiltrative changes in the periumbilical fat, likely related to the r ecent laparoscopic surgery Additional findings: None pertinent. IMPRESSION: There are postsurgical changes adjacent to the cecum from recent appendectomy. There is a small to m oderate amount of free pelvic fluid slightly increased when compared to the prior CT. A small amount of fluid tracks into the right paracolic gutter and along the undersurface of the right lobe the sharath er. The CT Hounsfield units of this fluid are higher than expected for simple fluid and is concernin g for a hemorrhagic component. A faint linear hyperdensity within the fluid collection right-sided t he pelvis is immediately adjacent to the distal bifurcation of the right common iliac artery and vein . Clinical correlation needed Cholelithiasis although no evidence of bony ductal dilatation Nonobstructing right-sided nephrolithiasis Results were called to VANESSA EVANS at 05/26/2018 4:45 PM. Report Dictated By: Su Peterson MD at 05/26/2018 4:31 PM Report E-Signed By: Su Peterson MD at 05/26/2018 4:55 PM [email or web address]
[2018-05-26 19:09] VITALS: BP 119/71
[2018-05-26] MEDS ORDERED: MORPHINE 2 MG/ML SYR IVP PRN (19:35)
[2018-05-26] MEDS ORDERED: ONDANSETRON 4 MG/2 ML VIAL IVP PRN (19:35)
[2018-05-26] MEDS: NS(*) 0.9% 1000 ML BAG 1,000 ML IV PRN (20:16)
[2018-05-26] MEDS: NS IVPB SCH (21:30)
[2018-05-26] MEDS: SULBACTAM IVPB SCH (21:30)
[2018-05-26] MEDS: AMPICILLIN IVPB SCH (21:30)
[2018-05-26 22:23] VITALS: BP 100/64
--- NOTE | 2018-05-27 01:43 | NUR ---
Patient's appears very controlling. He answer all questions for her despite her being able and eager to engage in conversation, and became upset when I asked him to allow his to answer. He made the OPERATIONS ANALYST on duty very uncomfortable, making inappropriate sexual remarks and advancements. The nursing evaporator supervisor was notified and discussed the importance of not discussing anything inappropriate with the staff.
[2018-05-27] MEDS: NS IVPB SCH ×4 (03:30→22:14)
[2018-05-27] MEDS: AMPICILLIN IVPB SCH ×4 (03:30→22:14)
[2018-05-27] MEDS: SULBACTAM IVPB SCH ×4 (03:30→22:14)
[2018-05-27 03:42] VITALS: BP 101/66
[2018-05-27] MEDS: NS(*) 0.9% 1000 ML BAG 1,000 ML IV PRN ×2 (05:15→20:32)
[2018-05-27 06:02] LABS: PLATELET COUNT, AUTOMATED 219 K/uL (150-450)
[2018-05-27 06:51] VITALS: BP 104/68
--- NOTE | 2018-05-27 07:20 | Gen Surgery History & Physical ---
History of Present Illness Chief Complaint abd pain History of Present Illness see recent h&p. 22 yo f s/p lap appy on 05/21/18. was doing well for a couple days after surgery but then started having periumbilical pain. she also has some luq pain and pain to her back. her pain is improved now. nausea. diarrhea. dizziness. she does not know if she had a fever. no known h/o ovarian cysts. History Home Meds Active Scripts Pantoprazole Sodium (PANTOPRAZOLE SODIUM) 40 Mg Tablet.dr, 1 TAB PO Q12H, #30 TAB 0 Refills Prov:DORI RIDLEY MD 05/22/18 Oxycodone/Acetaminophen (OXYCODONE/ACETAMINOPHEN 5MG/325 MG) 5 Mg/325 Mg Tab, 1 TAB PO Q4H PRN for MODERATE PAIN, #20 TAB 0 Refills Prov:DORI RIDLEY MD 05/22/18 Docusate Sodium (DOCUSATE SODIUM) 100 Mg Capsule, 1 CAP PO BID, #30 CAPSULE 0 Refills Prov:DORI RIDLEY MD 05/22/18 Clarithromycin (CLARITHROMYCIN) 500 Mg Tablet, 1 TAB PO BID, #28 TAB 0 Refills Prov:DORI RIDLEY MD 05/22/18 Amoxicillin (AMOXICILLIN) 500 Mg Capsule, 2 TAB PO BID, #56 CAPSULE 0 Refills Prov:DORI RIDLEY MD 05/22/18 Discontinued Scripts Ondansetron Hcl (ZOFRAN) 4 Mg Tablet, 4 MG PO Q8H for Nausea, #15 TAB 0 Refills Prov:MAGUE ISIDRO MD 05/21/18 Clarithromycin (CLARITHROMYCIN) 500 Mg Tablet, 500 MG PO BID for 14 Days, #28 TAB 0 Refills Prov:MAGUE ISIDRO MD 05/21/18 Amoxicillin 500 Mg Tab (AMOXICILLIN 500 MG TAB) 500 Mg Tablet, 2 TAB PO Q12H for 14 Days, #56 TAB 0 Refills Prov:MAGUE ISIDRO MD 05/21/18 Pantoprazole Sodium (PANTOPRAZOLE SODIUM) 40 Mg Tablet.dr, 40 MG PO BID for 14 Days, #28 TAB.SR 0 Refills Prov:MAGUE ISIDRO MD 05/21/18 Allergies: Coded Allergies: No Known Drug Allergies (Unverified , 05/21/18) Review of Systems Constitutional: Other (per hpi) Exam General Appearance: Alert, Awake, No Acute Distress Neuro: No Gross deficits Cardiovascular: Other (reg rate) Respiratory: No Respiratory Distress GI: Other (soft/nd, ttp except llq, inc c/d/i) Integumentary: Skin Intact without Lesion / Mass Psych: Alert & Oriented X3, Appropriate Mood & Affect Medical Decision Making Data Points Result Diagram: 05/27/18 0546 05/26/18 1546 Assessment and Plan Problems: (1) Post-op bleeding Status: Acute Assessment & Plan: hb 12.4 to 11.7. this is relatively stable ivana since pt received ivf. vitals ok. no infection. likely a bleed from surgery. will monitor. recheck hb at noon. clears until then. if hb stable then will continue to monitor. if it drops pt may need diagnostic laparoscopy. Venous Thromboembolism Antithrombotics Is Pt On Any Antithrombotics?: No Problem Qualifiers (1) Post-op bleeding: Surgical complication system/body Area: digestive system Procedure type: digestive system Qualified Codes: K91.840 - Postprocedural hemorrhage of a digestive system organ or structure following a digestive system procedure HENNA GRACIA May 27, 2018 07:20
[2018-05-27] MEDS ORDERED: APAP/HYDROCODONE 325/7.5 TAB PO PRN (07:25)
[2018-05-27] MEDS: PANTOPRAZOLE SOD 40 MG IV VIAL IVP SCH (09:28)
[2018-05-27 11:06] VITALS: BP 103/59
--- NOTE | 2018-05-27 15:11 | General Surgery Progress Note ---
Subjective Progress Notes Subjective no acute events. constipation. flatus. pt would like to eat. Physical Exam Vital Signs Date Time Temp Pulse Resp B/P (MAP) Pulse Ox O2 Delivery O2 Flow Rate FiO2 05/27/18 11:06 98.7 74 16 103/59 (74) 96 Room Air Intake and Output 05/27/18 07:00 Intake Total 2300 ml Balance 2300 ml Intake Oral 100 ml IV Total 2200 ml # Voids 6 General Appearance: No Acute Distress GI: Other (abd soft, ttp) Result Diagram: 05/27/18 1200 05/26/18 1546 Assessment and Plan Problems: (1) Post-op bleeding Status: Acute Assessment & Plan: 05/27/18: hb 12.4 to 11.7. this is relatively stable ivana since pt received ivf. vitals ok. no infection. likely a bleed from surgery. will monitor. recheck hb at noon. clears until then. if hb stable then will continue to monitor. if it drops pt may need diagnostic laparoscopy. 05/27/18 afternoon: hb has improved. stable. adat. recheck hb in am. Exam Sepsis Risk: No Definite Risk Problem Qualifiers (1) Post-op bleeding: Surgical complication system/body Area: digestive system Procedure type: digestive system Qualified Codes: K91.840 - Postprocedural hemorrhage of a digestive system organ or structure following a digestive system procedure HENNA GRACIA May 27, 2018 15:11
[2018-05-27] MEDS ORDERED: MAGNESIUM HYDROXIDE* 30ML UDCP PO PRN (15:15)
[2018-05-27 16:00] VITALS: BP 110/71
[2018-05-27 20:26] VITALS: BP 108/71
[2018-05-27] MEDS: DOCUSATE SODIUM 100 MG CAP PO SCH (20:32)
[2018-05-28] MEDS: NS IVPB SCH ×2 (03:26→09:06)
[2018-05-28] MEDS: SULBACTAM IVPB SCH ×2 (03:26→09:06)
[2018-05-28] MEDS: AMPICILLIN IVPB SCH ×2 (03:26→09:06)
[2018-05-28 03:28] VITALS: BP 100/66
--- NOTE | 2018-05-28 07:36 | General Surgery Progress Note ---
Subjective Progress Notes Subjective no acute events. no bm for last couple days. +flatus. brett po. Physical Exam Vital Signs Date Time Temp Pulse Resp B/P (MAP) Pulse Ox O2 Delivery O2 Flow Rate FiO2 05/28/18 03:28 76 14 100/66 (77) 94 Room Air 05/27/18 20:26 98.9 Intake and Output 05/28/18 07:00 Intake Total 1400 ml Balance 1400 ml Intake Oral 200 ml IV Total 1200 ml # Voids 2 GI: Other (abd soft) Result Diagram: 05/28/18 0530 05/26/18 1546 Assessment and Plan Problems: (1) Post-op bleeding Status: Acute Assessment & Plan: 05/27/18: hb 12.4 to 11.7. this is relatively stable ivana since pt received ivf. vitals ok. no infection. likely a bleed from surgery. will monitor. recheck hb at noon. clears until then. if hb stable then will continue to monitor. if it drops pt may need diagnostic laparoscopy. 05/27/18 afternoon: hb has improved. stable. adat. recheck hb in am. 05/28/18: hb 12.6. doing fine. d/c after bm. Exam Sepsis Risk: No Definite Risk Problem Qualifiers (1) Post-op bleeding: Surgical complication system/body Area: digestive system Procedure type: digestive system Qualified Codes: K91.840 - Postprocedural hemorrhage of a digestive system organ or structure following a digestive system procedure HENNA GRACIA May 28, 2018 07:36
[2018-05-28 08:50] VITALS: BP 98/65
[2018-05-28] MEDS: PANTOPRAZOLE SOD 40 MG IV VIAL IVP SCH (09:06)
[2018-05-28] MEDS: DOCUSATE SODIUM 100 MG CAP PO SCH (09:06)
[2018-05-28 12:02] VITALS: BP 102/75
== END 2018-05-28 17:45 | disposition home or self-care (01) ==
LOC: ER 15:24 → MED 18:10 → INTOOBSV 18:10
PROVIDERS: ADMIT Surgery; ATTEND Surgery
DX: K91.840 Postprocedural hemorrhage of a digestive system organ or structure following a digestive system procedure (principal); Y83.8 Other surgical procedures as the cause of abnormal reaction of the patient, or of later complication, without mention of misadventure at the time of the procedure; Y73.3 Surgical instruments, materials and gastroenterology and urology devices (including sutures) associated with adverse incidents
CPT/HCPCS: 36415; 74177; 81001; 82150; 83690; 85018; 85025; 96374; 99284; C9113; G0378; J0295; J2270; J2405; J7030; J7050; Q9967; 82040; 82247; 82310; 82374; 82435; 82565; 82947; 84075; 84132; 84155; 84295; 84450; 84460; 84520